=== PATIENT | male | born 1970 | race Native Hawaiian/Other Pacific Islander ===

== ENCOUNTER 2016-07-26 10:18 | Outpatient (CLI) | payer BC ==
[2016-07-26 10:28] LABS: PLATELET COUNT 246 K/uL (142-355)
== END 2016-07-26 11:30 | disposition home or self-care (01) ==
LOC: LABW 10:18
PROVIDERS: Internal Medicine
DX: D75.1 Secondary polycythemia (principal)
CPT/HCPCS: 85027; 99195

== ENCOUNTER 2017-07-11 11:49 | Outpatient (CLI) | payer BC | END 2017-07-11 22:26 | disposition home or self-care (01) | LOC: RAD 11:49 | DX: M25.561 Pain in right knee (principal) ==

== ENCOUNTER 2017-08-29 08:55 | Outpatient (CLI) | payer BC | END 2017-08-29 19:12 | disposition home or self-care (01) | LOC: LABW 08:55 | DX: D75.1 Secondary polycythemia (principal) | CPT/HCPCS: 36415; 85014; 85018; 99195 ==

== ENCOUNTER 2017-09-26 09:07 | Outpatient (CLI) | payer BC | END 2017-09-26 19:08 | disposition home or self-care (01) | LOC: LABW 09:07 | DX: D75.1 Secondary polycythemia (principal) | CPT/HCPCS: 36416; 85014; 85018 ==

== ENCOUNTER 2017-10-31 08:00 | Outpatient (CLI) | payer BC | END 2017-10-31 19:50 | disposition home or self-care (01) | LOC: LABW 08:00 | DX: D75.1 Secondary polycythemia (principal) | CPT/HCPCS: 36416; 85014; 85018; 99195 ==

== ENCOUNTER 2017-12-02 08:52 | Outpatient (CLI) | payer BC | END 2017-12-02 22:20 | disposition home or self-care (01) | LOC: LABW 08:52 | DX: D75.1 Secondary polycythemia (principal) | CPT/HCPCS: 36415; 85014; 85018; 99195 ==

== ENCOUNTER 2018-02-06 07:58 | Outpatient (CLI) | payer BC | END 2018-02-06 19:12 | disposition home or self-care (01) | LOC: LABW 07:58 | DX: D75.1 Secondary polycythemia (principal) | CPT/HCPCS: 36415; 85014; 85018; 99195 ==

== ENCOUNTER 2018-03-31 08:51 | Outpatient (CLI) | payer BC | END 2018-03-31 23:00 | disposition home or self-care (01) | LOC: LABW 08:51 | DX: D75.1 Secondary polycythemia (principal); R79.89 Other specified abnormal findings of blood chemistry | CPT/HCPCS: 36415; 81256; 85014; 85018 ==

== ENCOUNTER 2018-05-11 13:00 | Outpatient (CLI) | payer BC | END 2018-05-11 20:02 | disposition home or self-care (01) | LOC: RAD 13:00 | DX: M54.6 Pain in thoracic spine (principal); M54.5 Low back pain ==

== ENCOUNTER 2018-05-22 09:20 | Outpatient (CLI) | payer BC | END 2018-05-22 22:21 | disposition home or self-care (01) | LOC: LABW 09:20 | DX: D75.1 Secondary polycythemia (principal) | CPT/HCPCS: 36415; 85014; 85018 ==

== ENCOUNTER 2018-07-31 09:24 | Outpatient (CLI) | payer BC | END 2018-07-31 23:18 | disposition home or self-care (01) | LOC: LABW 09:24 | DX: D75.1 Secondary polycythemia (principal) | CPT/HCPCS: 85014; 85018 ==

== ENCOUNTER 2018-09-22 08:30 | Outpatient (CLI) | payer BC | END 2018-09-22 19:09 | disposition home or self-care (01) | LOC: LABW 08:30 | DX: D75.1 Secondary polycythemia (principal) | CPT/HCPCS: 36415; 85014; 85018 ==

== ENCOUNTER 2019-04-28 10:01 | Outpatient (CLI) | payer BC | END 2019-04-28 22:28 | disposition home or self-care (01) | LOC: LABW 10:01 | DX: D75.1 Secondary polycythemia (principal) | CPT/HCPCS: 85014; 85018; 99195 ==

== ENCOUNTER 2019-06-02 10:45 | Outpatient (CLI) | payer BC | END 2019-06-02 22:31 | disposition home or self-care (01) | LOC: LABW 10:45 | DX: D75.1 Secondary polycythemia (principal) | CPT/HCPCS: 36415; 85014; 85018; 99195 ==

== ENCOUNTER 2019-12-27 09:45 | Outpatient (CLI) | payer BC | END 2019-12-27 23:40 | disposition home or self-care (01) | LOC: LABW 09:45 | DX: D75.1 Secondary polycythemia (principal) | CPT/HCPCS: 85014; 85018; 99195 ==

== ENCOUNTER 2020-05-10 11:26 | Outpatient (CLI) | payer BC | END 2020-05-10 21:57 | disposition home or self-care (01) | LOC: LABW 11:26 | PROVIDERS: ATTEND Internal Medicine | DX: D75.1 Secondary polycythemia (principal) | CPT/HCPCS: 85014; 85018; 99195 ==

== ENCOUNTER 2020-06-09 09:29 | Outpatient (CLI) | payer BC ==
[2020-06-09 09:45] LABS: PLATELET COUNT 269 K/uL (142-355)
== END 2020-06-09 19:13 | disposition home or self-care (01) ==
LOC: LABW 09:29
PROVIDERS: ATTEND Internal Medicine
DX: D75.1 Secondary polycythemia (principal)
CPT/HCPCS: 36415; 85027; 99195

== ENCOUNTER 2020-07-14 09:16 | Outpatient (CLI) | payer BC | END 2020-07-14 20:53 | disposition home or self-care (01) | LOC: LABW 09:16 | PROVIDERS: ATTEND Internal Medicine | DX: D75.1 Secondary polycythemia (principal) | CPT/HCPCS: 85014; 85018; 99195 ==

== ENCOUNTER 2020-08-11 14:49 | Outpatient (CLI) | payer BC | END 2020-08-11 22:21 | disposition home or self-care (01) | LOC: LABW 14:49 | PROVIDERS: ATTEND Internal Medicine | DX: D75.1 Secondary polycythemia (principal) | CPT/HCPCS: 36415; 85014; 85018; 99195 ==

== ENCOUNTER 2020-10-12 11:14 | Outpatient (CLI) | payer BC | END 2020-10-12 21:05 | disposition home or self-care (01) | LOC: LABW 11:14 | PROVIDERS: ATTEND Internal Medicine | DX: D75.1 Secondary polycythemia (principal) | CPT/HCPCS: 36415; 85014; 85018; 99195 ==

== ENCOUNTER 2020-11-15 09:13 | Outpatient (CLI) | payer BC | END 2020-11-15 19:06 | disposition home or self-care (01) | LOC: LABW 09:13 | PROVIDERS: ATTEND Internal Medicine | DX: D75.1 Secondary polycythemia (principal) | CPT/HCPCS: 36415; 85014; 85018 ==

== ENCOUNTER 2021-03-02 09:22 | Outpatient (CLI) | payer BC | END 2021-03-02 18:57 | disposition home or self-care (01) | LOC: LABW 09:22 | PROVIDERS: ATTEND Internal Medicine | DX: D75.1 Secondary polycythemia (principal) | CPT/HCPCS: 36415; 85014; 85018; 99195 ==

== ENCOUNTER 2021-05-22 09:15 | Outpatient (CLI) | payer BC | END 2021-05-22 19:04 | disposition home or self-care (01) | LOC: LABW 09:15 | PROVIDERS: ATTEND Internal Medicine | DX: D75.1 Secondary polycythemia (principal) | CPT/HCPCS: 36415; 85014; 85018; 99195 ==

== ENCOUNTER 2021-12-31 12:30 | Outpatient (CLI) | payer BC | END 2021-12-31 19:05 | disposition home or self-care (01) | LOC: RAD 12:30 | PROVIDERS: ATTEND Physician Assistant | DX: M54.59 Other low back pain (principal) ==